=== PATIENT | male | born 1975 | race Caucasian/White ===

== ENCOUNTER 2017-06-25 17:46 | Inpatient (IN) | payer MEDICAID ==
[~2017-06-25] VITALS: Ht 177.8 cm; Wt 89.5 kg
[2017-06-25 20:00] LABS: BASOPHIL % 0.2 % (0-2); PLATELET COUNT 182 x10^3mcL (130-400); RED CELL DISTRIBUTION WIDTH 13.5 % (11.5-14.5)
[2017-06-25 20:07] LABS: CALCIUM 8.5 mg/dL (8.5-10.1); CARBON DIOXIDE 31.7 mmol/L (21-32); CHLORIDE SERUM 102 mmol/L (98-107); CREATININE SERUM 1.1 mg/dL (0.7-1.3); GFR1 > 60 mL/min; GLUCOSE SERUM 132 mg/dL (74-106); SODIUM SERUM 138 mmol/L (136-145)
[2017-06-25 20:12] LABS: ALBUMIN 3.5 g/dL (3.4-5.0); ALKALINE PHOSPHATASE 75 U/L (46-116); ALT/SGPT 34 U/L (16-63); AST/SGOT 29 U/L (15-37); BILIRUBIN TOTAL 0.3 mg/dL (0.20-1.00)
[2017-06-25 21:18] VITALS: BP 125/77
[2017-06-25 21:26] LABS: CHOLESTEROL/HDL RATIO 3.3; MAGNESIUM 1.9 mg/dL (1.8-2.4); PHOSPHOROUS 2.5 mg/dL (2.5-4.9)
[2017-06-25 21:32] LABS: T3 TOTAL 0.95 ng/mL
[2017-06-25 21:36] LABS: FREE T4 0.88 ng/dL (0.76-1.46); FREE THYROXINE INDEX 2.1 ug/dL (1.4-4.5); T4(THYROXINE) 6.7 ug/dL (4.7-13.3)
[2017-06-25 22:23] VITALS: BP 125/77
[2017-06-26 05:17] VITALS: BP 125/77
[2017-06-26 06:12] LABS: PLATELET COUNT 157 x10^3mcL (130-400); RED CELL DISTRIBUTION WIDTH 13.6 % (11.5-14.5)
[2017-06-26 06:16] LABS: CALCIUM 7.8 mg/dL (8.5-10.1); CARBON DIOXIDE 24.8 mmol/L (21-32); CHLORIDE SERUM 105 mmol/L (98-107); CREATININE SERUM 1.2 mg/dL (0.7-1.3); GFR1 > 60 mL/min; GLUCOSE SERUM 240 mg/dL (74-106); MAGNESIUM 2.3 mg/dL (1.8-2.4); PHOSPHOROUS 1.5 mg/dL (2.5-4.9); POTASSIUM SERUM 4.4 mmol/L (3.5-5.1); SODIUM SERUM 140 mmol/L (136-145)
[2017-06-26 06:25] LABS: microscopic required? NO
[2017-06-26 06:34] LABS: BASOPHIL % 0 % (0-2)
[2017-06-26 07:53] LABS: UA SPECIFIC GRAVITY 1.025 (1.005-1.035); urine erythrocyte NEGATIVE (NEGATIVE)
[2017-06-26 08:07] LABS: AMPHETAMINE QUAL UR POSITIVE (NEG <=1000)
[2017-06-26 10:10] VITALS: BP 118/87
[2017-06-26 13:04] VITALS: BP 124/87
[2017-06-26] MEDS ORDERED: MONTELUKAST SOD10 M1 PO (13:17)
[2017-06-26] MEDS ORDERED: PROVENTIL0.09 MG/A1 INH (13:17)
[2017-06-26 13:24] VITALS: BP 124/87
== END 2017-06-26 14:55 | disposition home or self-care (01) | DRG 141 ==
LOC: ED 17:46 → DU 20:27 → MU 20:27 → DU 21:07 → MU 06-26 10:16
PROVIDERS: Emergency Medicine; ADMIT Family Medicine
DX: J45.901 Unspecified asthma with (acute) exacerbation (principal); J18.9 Pneumonia, unspecified organism; J06.9 Acute upper respiratory infection, unspecified; E86.0 Dehydration; F17.210 Nicotine dependence, cigarettes, uncomplicated; F12.10 Cannabis abuse, uncomplicated; Z68.28 Body mass index [BMI] 28.0-28.9, adult
CPT/HCPCS: 83880; 84439; 94150; J0456; J2543; J2920; J2930; J3475; J7030; J7060; J7512; J7613; J7620; J7644; Q0092

== ENCOUNTER 2019-02-11 13:09 | Emergency (ER) | payer SELFPAY ==
[~2019-02-11] VITALS: Ht 177.8 cm; Wt 96.2 kg
[~2019-02-11 13:09] MED LIST: MONTELUKAST SOD10 M1 PO; PROVENTIL0.09 MG/A1 INH
[2019-02-11 13:23] VITALS: Ht 177.8 cm; Wt 96.2 kg
[2019-02-11 14:00] LABS: BASOPHIL % 0.6 % (0-2); PLATELET COUNT 229 x10^3mcL (130-400); RED CELL DISTRIBUTION WIDTH 14.1 % (11.5-14.5)
[2019-02-11 14:02] LABS: CALCIUM 9.4 mg/dL (8.5-10.1); CARBON DIOXIDE 28.5 mmol/L (21-32); CHLORIDE SERUM 106 mmol/L (98-107); CREATININE SERUM 0.9 mg/dL (0.7-1.3); GFR1 > 60 mL/min; GLUCOSE SERUM 97 mg/dL (74-106); POTASSIUM SERUM 4.6 mmol/L (3.5-5.1); SODIUM SERUM 143 mmol/L (136-145)
[2019-02-11 14:09] LABS: ALBUMIN 4.1 g/dL (3.4-5.0); ALKALINE PHOSPHATASE 76 U/L (46-116); ALT/SGPT 37 U/L (16-63); AST/SGOT 26 U/L (15-37); BILIRUBIN TOTAL 0.8 mg/dL (0.20-1.00); TOTAL PROTEIN, SERUM 7.6 g/dL (6.4-8.2)
[2019-02-11 18:01] VITALS: BP 131/93
== END 2019-02-11 18:01 | disposition home or self-care (01) ==
LOC: ED 13:09
DX: R07.89 Other chest pain (principal); F17.210 Nicotine dependence, cigarettes, uncomplicated; J45.909 Unspecified asthma, uncomplicated; Z71.6 Tobacco abuse counseling
CPT/HCPCS: 83880; 99406; J2060; Q0092

== ENCOUNTER 2019-08-12 14:31 | Emergency (ER) | payer OTHER ==
[~2019-08-12] VITALS: Ht 180.3 cm; Wt 89.4 kg
[2019-08-12 14:44] VITALS: BP 139/104; Ht 180.3 cm; Wt 89.4 kg
== END 2019-08-12 15:20 | disposition home or self-care (01) ==
LOC: ED 14:31
DX: D17.23 Benign lipomatous neoplasm of skin and subcutaneous tissue of right leg (principal); J45.909 Unspecified asthma, uncomplicated

== ENCOUNTER 2020-07-02 10:26 | Emergency (ER) | payer OTHER ==
[~2020-07-02] VITALS: Ht 177.8 cm; Wt 83.5 kg
[2020-07-02 10:29] VITALS: Ht 177.8 cm; Wt 83.5 kg
[2020-07-02 12:09] VITALS: BP 139/94
== END 2020-07-02 12:09 | disposition home or self-care (01) ==
LOC: ED 10:26
DX: R51.9 Headache, unspecified (principal); R50.9 Fever, unspecified; J45.909 Unspecified asthma, uncomplicated; Z20.828 Contact with and (suspected) exposure to other viral communicable diseases
CPT/HCPCS: U0003